=== PATIENT | male | born 1960 | race Two or more races ===

== ENCOUNTER 2025-02-17 08:09 | Outpatient (RCR) | payer MEDICAID, SELFPAY | END 2025-03-13 23:59 | disposition home or self-care (01) | LOC: SCTC 08:09 | PROVIDERS: PCP Family Medicine; Referring Provider Family Medicine; Visit Provider Nurse Practitioner Family | DX: D69.6 Thrombocytopenia, unspecified (principal); E11.9 Type 2 diabetes mellitus without complications; R74.8 Abnormal levels of other serum enzymes; E66.9 Obesity, unspecified; Z68.31 Body mass index [BMI] 31.0-31.9, adult; Z87.19 Personal history of other diseases of the digestive system | CPT/HCPCS: 99213; G0463 ==

== ENCOUNTER 2025-03-10 08:06 | Outpatient (AMB) | payer MEDICAID, SELFPAY ==
--- NOTE | 2025-03-10 08:14 | ORTHONT_ITS ---
Vital signs 03/10/25 08:15 Height 1.78 m Height Method Measured Weight 96.19 kg Weight Measurement Method Standing Scale BMI 30.4 BP 108/74 Blood Pressure Source Automatic Cuff Blood Pressure Location Left Upper Arm Position Sitting Respiration 18 Pulse 56 L Pulse Source Monitor Temp 97.0 F Temp Source Temporal Artery Scan Pulse Oximetry (%) 96 Oxygen Delivery Method Room Air Med/Allergies Allergies & Medications Allergies NKA* Allergy (Uncoded 03/10/25 08:16) Medication Reconciliation meloxicam 7.5 mg tablet 7.5 mg PO QDAY #45 tabs 03/10/25 [Rx] metformin 500 mg tablet 500 mg PO BID 03/10/25 [History Confirmed 03/10/25] sildenafil 50 mg tablet 50 mg PO QDAY PRN 03/10/25 [History Confirmed 03/10/25] Exam Exam Patient is in no acute distress and is cooperative with the examination today. Breathing is nonlabored. In no respiratory distress. Bilateral extremities were evaluated and demonstrates sensation intact to light touch. Palpable pedal pulses are present. No significant edema is present. Bilateral hips were examined. The patient has no pain with log roll of the hips. Internal rotation to 30 degrees and external rotation to 30 degrees is painless. Negative FADIR. The left knee was examined. The left knee is in varus alignment. Range of motion from 0-115 degrees. Knee is stable to varus and valgus as well as AP translation with <5mm. Patient has a negative McMurrays. There is no pain with patellofemoral compression and no crepitus noted. The knee is tender to palpation medially. The right knee was also examined. The right knee is in varus alignment. Range of motion from 0-120 degrees. Knee is stable to varus and valgus as well as AP translation with <5mm. Patient has a negative McMurrays. There is no pain with patellofemoral compression and no crepitus noted. The knee is tender to palpation medially. X-rays demonstrate moderate arthritis on nonweightbearing films. We will get weightbearing films Assessment and Plan Problem List (1) Degenerative arthritis of knee, bilateral: Status: Acute Plan: Patient is a pleasant 65-year-old male with bilateral knee pain and bilateral knee arthritis. We discussed different treatment options. We will give him meloxicam and send him for x-rays today. I would like to get weightbearing films. We will get authorization for injections at the next visit. 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 ([id number]) MA Intake Visit Data Collection New Patient or Established: New Patient (never been to [facility]) Reason for Visit:: PAIN LEFT KNEE PAIN Seen by Clinical Staff ONLY (RN/MA): No 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: No PCP or OBGYN visit in last 3 months: Yes Hx Now: No Do You Feel Safe at Home: Yes Authorities Contacted: N/A Questionairres Past Medical History Past Medical History Have you ever been diagnosed with any of the following: Respiratory Problems Smoking: No Smoking Cessation Counseling: No Smoking Exposure: No Endocrine Problems Diabetes Mellitus Type 1: No Diabetes Mellitus Type 2: Yes Subjective Visit Visit for: new patient and knee Immunization / Flu Flu Vaccine in the Last 12 Months: No Flu Vaccine Exclusion Criteria: Refused by Patient History of Present Illness Chief complaint: PAIN LEFT KNEE Date of injury / onset of symptoms: 10 YEARS Patient is a pleasant 65-year-old male with left knee pain greater than right. This been ongoing for 10 years. He has had meniscal surgery in the past. He has not had any injections. He has tried anti-inflammatories. 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 BMI Counceling provided: Yes Pain Pain level (0-10): 4 Pain location: inside (medial) and outside (lateral) Pain quality: burning and tingling Pain timing: night, increases with activity and stairs Associated signs & symptoms: numbness, weakness and stiffness Ambulatory data Ambulatory device: none Walking distance (blocks): 1 Treatments Number of previous injections: 0 Improvement with previous injections: No Number of Physical Therapy sessions: 0 Improvement with PT: No Improvement with NSAIDS: yes (NAPROXEN) Review of Systems Review of Systems: All systems negative unless otherwise noted in HPI.
[2025-03-10 08:15] VITALS: BP 108/74; PULSE 56; RESP 18; TEMP 36.1; O2SAT 96; BMI 30.4
--- NOTE | 2025-03-10 08:28 | XR_ITS ---
Examination: Bilateral knees 2 views Right lateral knee left lateral knee 2 views Bilateral axial knees single view TECHNIQUE: Bilateral AP knees standing single view, bilateral PA knees standing single view flexion Standing right lateral knee left lateral knee 2 views Bilateral axial knees single view Date and time: March 02, 2025 at 0840 hours INDICATIONS: Left knee pain 5 years right knee pain one year. FINDINGS: Moderate osteopenia. Severe narrowing medial joint space left knee Significant osteoarthritis left patellofemoral joint No fracture Mild to moderate right knee tricompartment osteoarthritis IMPRESSION: Severe narrowing medial joint space left knee
== END 2025-03-10 08:31 | disposition home or self-care (01) ==
LOC: HODSRG 08:06
PROVIDERS: PCP Family Medicine; Referring Provider Family Medicine; Supervising Provider Orthopaedic Surgery Adult Reconstructive Orthopaedic Surgery; Visit Provider Orthopaedic Surgery Adult Reconstructive Orthopaedic Surgery
DX: M17.0 Bilateral primary osteoarthritis of knee (principal); M25.562 Pain in left knee; M25.561 Pain in right knee; E11.9 Type 2 diabetes mellitus without complications
CPT/HCPCS: 73564; 99204; G0463

== ENCOUNTER 2025-03-24 09:09 | Outpatient (AMB) | payer MEDICAID, SELFPAY ==
--- NOTE | 2025-03-24 09:32 | ORTHONT_ITS ---
Vital signs 03/24/25 09:33 Height 1.78 m Height Method Measured Weight 96.729 kg Weight Measurement Method Standing Scale BMI 30.5 BP 124/82 Blood Pressure Source Automatic Cuff Blood Pressure Location Left Upper Arm Position Sitting Respiration 18 Pulse 69 Pulse Source Monitor Temp 97.7 F Temp Source Temporal Artery Scan Pulse Oximetry (%) 96 Oxygen Delivery Method Room Air Med/Allergies Allergies & Medications Allergies NKA* Allergy (Uncoded 03/24/25 09:34) Medication Reconciliation meloxicam 7.5 mg tablet 7.5 mg PO QDAY #45 tabs 03/10/25 [Rx Confirmed 03/24/25] metformin 500 mg tablet 500 mg PO BID 03/10/25 [History Confirmed 03/24/25] sildenafil 50 mg tablet 50 mg PO QDAY PRN 03/10/25 [History Confirmed 03/24/25] Exam Exam Patient is in no acute distress and is cooperative with the examination today. Breathing is nonlabored. In no respiratory distress. Bilateral extremities were evaluated and demonstrates sensation intact to light touch. Palpable pedal pulses are present. No significant edema is present. Bilateral hips were examined. The patient has no pain with log roll of the hips. Internal rotation to 30 degrees and external rotation to 30 degrees is painless. Negative FADIR. The left knee was examined. The left knee is in varus alignment. Range of motion from 0-115 degrees. Knee is stable to varus and valgus as well as AP translation with <5mm. Patient has a negative McMurrays. There is no pain with patellofemoral compression and no crepitus noted. The knee is tender to palpation medially. The right knee was also examined. The right knee is in varus alignment. Range of motion from 0-120 degrees. Knee is stable to varus and valgus as well as AP translation with <5mm. Patient has a negative McMurrays. There is no pain with patellofemoral compression and no crepitus noted. The knee is tender to palpation medially. X-rays demonstrate significant arthritis of the left hip obliteration of the joint space. The right side has mild to moderate arthritis Assessment and Plan Problem List (1) Degenerative arthritis of knee, bilateral: Status: Acute Plan: Patient is a pleasant 65-year-old male with bilateral knee pain and bilateral knee arthritis. We discussed different treatment options. we gave him meloxicam and reports it helped somewhat. We discussed that he has significant arthritis. He would like to try bilateral knee cortisone injections today Recommend knee cortisone injection as patient would like to proceed with conservative treatment at this time. The risks and benefits of the procedure were reviewed with the patient and patient gave verbal consent to continue with the procedure. Procedure: performed by Dr. Busch Using sterile technique the left knee was thoroughly prepped with alcohol, and approximately 1 cc of Depo-Medrol 80mg/mL and 4 cc of 0.2% ropivacaine was injected without resistance into the medial tibial femoral joint space. The patient tolerated the procedure. Recommend knee cortisone injection as patient would like to proceed with conservative treatment at this time. The risks and benefits of the procedure were reviewed with the patient and patient gave verbal consent to continue with the procedure. Procedure: performed by Dr. Busch Using sterile technique the Right knee was thoroughly prepped with alcohol, and approximately 1 cc of Depo-Medrol 80mg/mL and 4 cc of 0.2% ropivacaine was injected without resistance into the medial tibial femoral joint space. The patient tolerated the procedure. Office Procedures GNS Level of Care Nursing/Assessment Patient Status: Established Patient Nursing Assessment/Reassesment: Medication Reconciliation, Orthostatic Vitals, Update PMH in EMR and Vital Signs Coordination of Care: Complex Care and Chronic Disease 1-5, Education Complex Pt/Fam, Consent,records obtained, informed consent, Results/Orders obtained and Staff clarify orders Established Patient Charge Established Patient Point Assignment: 105 Established Patient Point Charge: EP Level 3 (80-115) Surgical Proc/IM SQ injection Major Surgical Procedure: Yes (BILATERAL KNEE INJECTIONS ) Medication Given Medication Given Medication Given: Yes Documented Dose Given: 1 Route: Infiitration Medication Given Medication Given Medication Given: Yes Documented Dose Given: 1 Route: Infiitration Medication Given Medication Given Medication Given: Yes Documented Dose Given: 4 Route: Infiitration Office Meds methylprednisolone acetate 80 mg/mL suspension for injection Performing Provider: Aniket Busch MD Performing Location: [facility] Administered by: Aniket Busch MD on 03/24/25 10:07 Dose Route Admin Location Dispensed Lot Number Expiration Date Pack age [facility] [employer] 80 mg intra-articular 1 mL [id number] 11/11/26 [address]-8 [id number] [employer] methylprednisolone acetate 80 mg/mL suspension for injection Performing Provider: Aniket Busch MD Performing Location: [facility] Administered by: Aniket Busch MD on 03/24/25 10:07 Dose Route Admin Location Dispensed Lot Number Expiration Date Pack age [facility] [employer] 80 mg intra-articular 1 mL [id number] 11/11/26 [address]-1 7 [id number] [employer] ropivacaine (PF) 2 mg/mL (0.2 %) injection solution Performing Provider: Aniket Busch MD Performing Location: [facility] Administered by: Aniekt Busch MD on 03/24/25 10:07 Dose Route Admin Location Dispensed Lot Number Expiration Date Pack age [facility] [employer] 20 mL Infiltration 20 mL [id number] 07/14/27 33419-817-26 [id number] [facility] ropivacaine (PF) 2 mg/mL (0.2 %) injection solution Performing Provider: Aniket Busch MD Performing Location: [facility] Administered by: Chapis Hernandez on 03/24/25 10:07 Dose Route Admin Location Dispensed Lot Number Expiration Date Pack age [facility] [employer] 20 mL Infiltration 20 mL MA Intake Visit Data Collection New Patient or Established: Established Patient (seen at 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 PCP or OBGYN visit in last 3 months: Yes Hx Now: No Do You Feel Safe at Home: Yes Authorities Contacted: N/A Questionairres Past Medical History Past Medical History Have you ever been diagnosed with any of the following: Respiratory Problems Smoking: No Smoking Cessation Counseling: No Smoking Exposure: No Endocrine Problems Diabetes Mellitus Type 1: No Diabetes Mellitus Type 2: Yes Subjective Visit Visit for: follow up visit and knee Immunization / Flu Flu Vaccine in the Last 12 Months: No Flu Vaccine Exclusion Criteria: Refused by Patient History of Present Illness Chief complaint: PAIN LEFT KNEE/XRAY RESULTS Date of injury / onset of symptoms: 10 YEARS Patient is a pleasant 65-year-old male with left knee pain greater than right. This been ongoing for 10 years. He has had meniscal surgery in the past. He has not had any injections. He has tried anti-inflammatories. 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 BMI Counceling provided: Yes Pain Pain level (0-10): 4 Pain location: inside (medial) and outside (lateral) Pain quality: burning and tingling Pain timing: night, increases with activity and stairs Associated signs & symptoms: numbness, weakness and stiffness Ambulatory data Ambulatory device: none Walking distance (blocks): 1 Treatments Number of previous injections: 0 Improvement with previous injections: No Number of Physical Therapy sessions: 0 Improvement with PT: No Improvement with NSAIDS: yes (NAPROXEN) Review of Systems Review of Systems: All systems negative unless otherwise noted in HPI.
[2025-03-24 09:33] VITALS: BP 124/82; PULSE 69; RESP 18; TEMP 36.5; O2SAT 96; BMI 30.5
== END 2025-03-24 09:56 | disposition home or self-care (01) ==
LOC: HODSRG 09:09
PROVIDERS: PCP Family Medicine; Referring Provider Family Medicine; Supervising Provider Orthopaedic Surgery Adult Reconstructive Orthopaedic Surgery; Visit Provider Orthopaedic Surgery Adult Reconstructive Orthopaedic Surgery
DX: M17.0 Bilateral primary osteoarthritis of knee (principal); M25.562 Pain in left knee; M25.561 Pain in right knee; E11.9 Type 2 diabetes mellitus without complications
CPT/HCPCS: 20610; 99213; J1010; J2795; G0463

== ENCOUNTER 2025-04-04 10:00 | Outpatient (RCR) | payer MEDICAID, SELFPAY | END 2025-04-12 23:59 | disposition home or self-care (01) | LOC: SCTC 10:00 | PROVIDERS: PCP Family Medicine; Referring Provider Family Medicine; Visit Provider Radiology Therapeutic Radiology | DX: D69.6 Thrombocytopenia, unspecified (principal); E11.9 Type 2 diabetes mellitus without complications; E66.9 Obesity, unspecified; Z68.30 Body mass index [BMI] 30.0-30.9, adult; K76.0 Fatty (change of) liver, not elsewhere classified; E78.00 Pure hypercholesterolemia, unspecified | CPT/HCPCS: 99212; G0463 ==

== ENCOUNTER → 2025-05-18 | Outpatient (CLI) | payer MEDICAID, SELFPAY ==
--- NOTE | 2025-05-18 08:45 | XR_ITS ---
Examination: Abdomen sonogram, complete Date and time of exam: May 18, 2025, 0911 hours INDICATIONS: Diagnosis thrombocytopenia elevated liver function tests on laboratory examination March 04, 2025. Technique: Multiple real-time grayscale transabdominal sonographic images of the abdomen have been obtained. Findings: Absent gallbladder Normal common bile duct 0.4 cm Pancreatic head 2.2 cm Aorta not enlarged. Liver 15.2 cm fatty infiltration no focal liver lesions Normal hepatopetal portal venous flow Patent IVC Right kidney 10.2 cm renal cortex 1.6 cm Left kidney 10.2 cm renal cortex 2.5 cm Mild renal scar formation No hydronephrosis Spleen 11.2 cm IMPRESSION: Normal common bile duct Liver normal size fatty infiltration
== END | disposition home or self-care (01) ==
LOC: CDIM 09:04
PROVIDERS: Referring Provider Nurse Practitioner Family; Visit Provider Nurse Practitioner Family
DX: K76.0 Fatty (change of) liver, not elsewhere classified (principal); D69.6 Thrombocytopenia, unspecified
CPT/HCPCS: 76700

== ENCOUNTER 2025-06-06 11:00 | Outpatient (RCR) | payer MEDICAID, SELFPAY | END 2025-06-12 23:59 | disposition home or self-care (01) | LOC: SCTC 11:00 | PROVIDERS: PCP Family Medicine; Referring Provider Nurse Practitioner Family; Visit Provider Nurse Practitioner Family | DX: D69.6 Thrombocytopenia, unspecified (principal); E11.9 Type 2 diabetes mellitus without complications; E66.9 Obesity, unspecified; Z68.31 Body mass index [BMI] 31.0-31.9, adult; E78.00 Pure hypercholesterolemia, unspecified; Z71.3 Dietary counseling and surveillance | CPT/HCPCS: 99212; G0463 ==

== ENCOUNTER 2025-06-23 10:16 | Outpatient (AMB) | payer MEDICAID, SELFPAY ==
--- NOTE | 2025-06-23 10:46 | PD.ORTHCLVIS ---
Vital signs 06/23/25 10:53 Height 1.78 m Height Method Stated Weight 97.182 kg Weight Measurement Method Standing Scale BMI 30.7 BP 123/85 H Blood Pressure Source Automatic Cuff Blood Pressure Location Right Upper Arm Position Sitting Respiration 18 Pulse 79 Pulse Source Monitor Temp 97.7 F Temp Source Temporal Artery Scan Pulse Oximetry (%) 96 Oxygen Delivery Method Room Air Med/Allergies Allergies & Medications Allergies NKA* Allergy (Uncoded 06/23/25 10:53) Medication Reconciliation meloxicam 7.5 mg tablet 7.5 mg PO QDAY #45 tabs 03/10/25 [Rx Confirmed 06/23/25] metformin 500 mg tablet 500 mg PO BID 03/10/25 [History Confirmed 06/23/25] sildenafil 50 mg tablet 50 mg PO QDAY PRN 03/10/25 [History Confirmed 06/23/25] meloxicam 7.5 mg tablet 7.5 mg PO QDAY #45 tabs 06/23/25 [Rx Confirmed 06/23/25] Exam Exam Patient is in no acute distress and is cooperative with the examination today. Breathing is nonlabored. In no respiratory distress. Bilateral extremities were evaluated and demonstrates sensation intact to light touch. Palpable pedal pulses are present. No significant edema is present. Bilateral hips were examined. The patient has no pain with log roll of the hips. Internal rotation to 30 degrees and external rotation to 30 degrees is painless. Negative FADIR. The left knee was examined. The left knee is in varus alignment. Range of motion from 0-115 degrees. Knee is stable to varus and valgus as well as AP translation with <5mm. Patient has a negative McMurrays. There is no pain with patellofemoral compression and no crepitus noted. The knee is tender to palpation medially. The right knee was also examined. The right knee is in varus alignment. Range of motion from 0-120 degrees. Knee is stable to varus and valgus as well as AP translation with <5mm. Patient has a negative McMurrays. There is no pain with patellofemoral compression and no crepitus noted. The knee is tender to palpation medially. X-rays demonstrate significant arthritis of the left knee with obliteration of the medial joint space . The right side has mild to moderate arthritis Assessment and Plan Problem List (1) Degenerative arthritis of knee, bilateral: Status: Acute Plan: Patient is a pleasant 65-year-old male with bilateral knee pain and bilateral knee arthritis. We discussed different treatment options. we gave him meloxicam and reports it helped somewhat. We discussed that he has significant arthritis. He would like to try bilateral knee cortisone injections today Recommend knee cortisone injection as patient would like to proceed with conservative treatment at this time. The risks and benefits of the procedure were reviewed with the patient and patient gave verbal consent to continue with the procedure. Procedure: performed by Dr. Busch Using sterile technique the left knee was thoroughly prepped with alcohol, and approximately 1 cc of Depo-Medrol 80mg/mL and 4 cc of 0.2% ropivacaine was injected without resistance into the medial tibial femoral joint space. The patient tolerated the procedure. Recommend knee cortisone injection as patient would like to proceed with conservative treatment at this time. The risks and benefits of the procedure were reviewed with the patient and patient gave verbal consent to continue with the procedure. Procedure: performed by Dr. Busch Using sterile technique the Right knee was thoroughly prepped with alcohol, and approximately 1 cc of Depo-Medrol 80mg/mL and 4 cc of 0.2% ropivacaine was injected without resistance into the medial tibial femoral joint space. The patient tolerated the procedure. (2) Degenerative arthritis of knee, bilateral: Status: Acute Plan: Patient is a pleasant 65-year-old male with bilateral knee pain and bilateral knee arthritis. We will start with a brace as he does not want cortisone injections today. He we also sent him a prescription for meloxicam We will see him back 4 months routine follow-up for his bilateral knee arthritis. Office Procedures GNS Level of Care Nursing/Assessment Patient Status: Established Patient Nursing Assessment/Reassesment: Medication Reconciliation, Update PMH in EMR and Vital Signs Coordination of Care: Complex Care and Chronic Disease 1-5, Education Complex Pt/Fam, Consent,records obtained, informed consent, 1 Ins Authorization, Results/Orders obtained and Staff clarify orders Established Patient Charge Established Patient Point Assignment: 110 Established Patient Point Charge: EP Level 3 (80-115) Surgical Proc/IM SQ injection Minor Surgical Procedure: Yes (KNEE INJECTIONS) MA Intake Visit Data Collection New Patient or Established: Established Patient (seen at [facility] within 3 years) Reason for Visit:: 3 MONTH BL KNEE INJECTION Seen by Clinical Staff ONLY (RN/MA): No Verbal consent obtained for Telemed visit?: No Space [employer] Miss[employer] Required: No PCP or OBGYN visit in last 3 months: Yes Hx Now: No Do You Feel Safe at Home: Yes Authorities Contacted: N/A Questionairres Past Medical History Past Medical History Have you ever been diagnosed with any of the following: Respiratory Problems Smoking: No Smoking Cessation Counseling: No Smoking Exposure: No Endocrine Problems Diabetes Mellitus Type 1: No Diabetes Mellitus Type 2: Yes Subjective Visit Visit for: follow up visit and knee Immunization / Flu Flu Vaccine in the Last 12 Months: No Flu Vaccine Exclusion Criteria: Refused by Patient History of Present Illness Chief complaint: PAIN LEFT KNEE/XRAY RESULTS Date of injury / onset of symptoms: 10 YEARS Patient is a pleasant 65-year-old male with left knee pain greater than right. This has been ongoing for 10 years. He has had meniscal surgery in the past. He had 1 injection reports minimal relief. 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 BMI Counceling provided: Yes Pain Pain level (0-10): 4 Pain location: inside (medial) and outside (lateral) Pain quality: burning and tingling Pain timing: night, increases with activity and stairs Associated signs & symptoms: numbness, weakness and stiffness Ambulatory data Ambulatory device: none Walking distance (blocks): 1 Treatments Number of previous injections: 0 Improvement with previous injections: No Number of Physical Therapy sessions: 0 Improvement with PT: No Improvement with NSAIDS: yes (NAPROXEN) Review of Systems Review of Systems: All systems negative unless otherwise noted in HPI.
[2025-06-23 10:53] VITALS: BP 123/85; PULSE 79; RESP 18; TEMP 36.5; O2SAT 96; BMI 30.7
== END 2025-06-23 10:57 | disposition home or self-care (01) ==
LOC: HODSRG 10:16
PROVIDERS: PCP Family Medicine; Referring Provider Family Medicine; Supervising Provider Orthopaedic Surgery Adult Reconstructive Orthopaedic Surgery; Visit Provider Orthopaedic Surgery Adult Reconstructive Orthopaedic Surgery
DX: M17.0 Bilateral primary osteoarthritis of knee (principal); M25.562 Pain in left knee; M25.561 Pain in right knee; E11.9 Type 2 diabetes mellitus without complications; Z79.84 Long term (current) use of oral hypoglycemic drugs
CPT/HCPCS: 20610; 99213; J1010; J2795; G0463